=== PATIENT | female | born 1970 | race Caucasian/White ===

== ENCOUNTER 2017-08-20 19:40 | Emergency (ER) | payer BC ==
[~2017-08-20] VITALS: Ht 162.6 cm; Wt 77.1 kg
[2017-08-20] MEDS ORDERED: NOHOMEMEDICATIONS (19:55)
[2017-08-20] MEDS ORDERED: NAPROSYN500 MG PO (23:05)
[2017-08-20 23:11] VITALS: BP 141/87
== END 2017-08-20 23:12 | disposition home or self-care (01) ==
LOC: ER 19:40
DX: S46.811A Strain of other muscles, fascia and tendons at shoulder and upper arm level, right arm, initial encounter (principal); F17.210 Nicotine dependence, cigarettes, uncomplicated; Z88.5 Allergy status to narcotic agent; Z88.8 Allergy status to other drugs, medicaments and biological substances; T74.21XA Adult sexual abuse, confirmed, initial encounter; Y93.89 Activity, other specified; Y92.89 Other specified places as the place of occurrence of the external cause; Y99.8 Other external cause status